=== PATIENT | female | born 1985 | race Two or more races ===

== ENCOUNTER 2021-02-22 13:22 | Emergency (ER) | payer OTHER ==
[~2021-02-22] VITALS: Ht 165.1 cm; Wt 59.0 kg
[~2021-02-22 13:22] MED LIST: FOLIC + B12 TAB1 TAB PO; N; PERCOCET 5-3251 EACH PO; PRENATAL1 TAB PO; SURFAK240 MG NGT
== END 2021-02-22 17:14 | disposition home or self-care (01) ==
LOC: ER 13:22
DX: B34.9 Viral infection, unspecified (principal)